=== PATIENT | female | born 1995 | race Caucasian/White ===

== ENCOUNTER → 2017-02-17 | Outpatient (CLI) | payer BC ==
[~2017-02-17] MED LIST: BCPILLS PO
[2017-02-20 23:55] LABS: CHLAMYDIA TRACH RNA*** NOT DETECTED (NOT DETECTED); GC (NEIS GONORRHOEAE)RNA** NOT DETECTED (NOT DETECTED)
== END | disposition home or self-care (01) ==
LOC: C.LABSPEC 17:19
PROVIDERS: ATTEND Obstetrics & Gynecology
DX: Z01.419 Encounter for gynecological examination (general) (routine) without abnormal findings (principal)

== ENCOUNTER → 2017-02-17 | Outpatient (CLI) | payer BC | END | disposition home or self-care (01) | LOC: C.PAPS 12:16 | PROVIDERS: ATTEND Obstetrics & Gynecology | DX: Z01.419 Encounter for gynecological examination (general) (routine) without abnormal findings (principal) ==

== ENCOUNTER → 2017-06-01 | Outpatient (CLI) | payer BC ==
[2017-06-05 14:28] LABS: MICROSOMAL AB <1 IU/ML (<9)
== END | disposition home or self-care (01) ==
LOC: C.LAB1850 15:27
PROVIDERS: ATTEND Dermatology
DX: L98.9 Disorder of the skin and subcutaneous tissue, unspecified (principal)

== ENCOUNTER → 2017-06-21 | Outpatient (CLI) | payer BC ==
[2017-06-21 10:19] LABS: URINE APPEARANCE CLEAR (CLEAR); URINE BILIRUBIN NEG (NEG); URINE COLOR YELLOW; URINE NITRITE NEG (NEG); URINE PH 6.5 (4.5-7.5); URINE SPECIFIC GRAVITY 1.023 (1.000-1.030); UROBILINOGEN NEG (NEG)
[2017-06-21 10:32] LABS: MANUAL MICROSCOPIC REQUIRED? NO; REVIEW REQ? NO
[2017-06-24 04:31] LABS: ANTI-CENTROMERE AB <1.0 NEG AI (<1.0 NEG); ANTI-SS-A <1.0 NEG AI (<1.0 NEG); ANTI-SS-B <1.0 NEG AI (<1.0 NEG); DNA ds CRITHIDIA NEGATIVE (NEGATIVE); Sm Antibody <1.0 NEG AI (<1.0 NEG)
== END | disposition home or self-care (01) ==
LOC: C.LAB1850 08:52
PROVIDERS: ATTEND Internal Medicine Rheumatology
DX: L90.0 Lichen sclerosus et atrophicus (principal); R76.8 Other specified abnormal immunological findings in serum

== ENCOUNTER → 2017-07-05 | Outpatient (CLI) | payer BC ==
[2017-07-05 11:17] LABS: BASO % 0.5 %; BASO ABS # 0.03 K/uL (0-0.2); COMPLETE YES; EOS % 1.7 %; HEMATOCRIT 43.1 % (37-47); IG% 0.2 %; LYMPH % 23.5 %; LYMPH ABS # 1.48 K/uL (1.2-3.4); MEAN CELL VOLUME 90.9 fL (80-100); MEAN CORPUSCULAR HEMOGLOBIN 29.3 pg (25-34); MEAN CORPUSCULAR HGB CONC 32.3 g/dl (32-36); MEAN PLATELET VOLUME 10.2 fL (7.4-10.4); MONO % 11.4 %; NEUT % 62.7 %; PLATELET COUNT 323 K/uL (130-400); RED BLOOD COUNT 4.74 M/uL (4.2-5.4)
[2017-07-05 11:45] LABS: ALT/SGPT 19 U/L (12-78)
[2017-07-05 11:48] LABS: ALKALINE PHOSPHATASE 82 U/L (45-117); AST/SGOT 13 U/L (15-37)
[2017-07-06 18:42] LABS: ALBUMIN 3.9 G/DL (3.8-4.8); GAMMA GLOBULIN 1.5 G/DL (0.8-1.7); TOTAL PROTEIN 7.6 G/DL (6.2-8.3)
== END | disposition home or self-care (01) ==
LOC: C.LAB1850 10:11
PROVIDERS: ATTEND Internal Medicine Rheumatology
DX: L90.0 Lichen sclerosus et atrophicus (principal); R76.8 Other specified abnormal immunological findings in serum; R70.0 Elevated erythrocyte sedimentation rate

== ENCOUNTER 2022-03-24 04:42 | Inpatient (IN) ==
--- NOTE | 2022-03-24 05:27 | History & Physical Report ---
Date of Service March 24, 2022 Assessment & Plan (1) Amniotic fluid leaking: (2) Supervision of normal first : Plan: IUP at term in early labor with SPROM GBS-negative will start pitocin augmentation of labor epidural when requested anticipate vaginal History of Present Illness Primary Care Provider: Arminda Baldwin MD Patient is a 26 yo white female EDC 03/24/22who presents at 39 4/7 weeks with SPROM for clear fluid around 0330. no contractions yet. baby active. GBS - negative Allergies Allergy/AdvReac Type Severity Reaction Status Date / Time No Known Allergies Allergy Mild Verified 03/23/22 15:01 Home Medications Medication Instructions Recorded Confirmed Type betamethasone dipropionate 0.05 % 1 applic TOP DAILY PRN gm 06/17/21 03/23/22 History topical ointment hydrocortisone 2.5 % topical cream 1 applic TOPICAL DAILY PRN #30 gm 06/17/21 03/23/22 Rx prenat.vits,norris,[id number] 1 tab PO DAILY 08/13/21 03/24/22 History mupirocin 2 % topical ointment 1 applic TOPICAL TID 7 Days #15 g 09/30/21 03/23/22 Rx ondansetron HCl 4 mg tablet 4 mg PO TID PRN 5 Days #30 tab 12/07/21 03/23/22 Rx venlafaxine 75 mg capsule,extended 75 mg PO DAILY #90 cap 03/07/22 03/24/22 Rx release 24 hr Patient History Medical History (Updated 03/24/22 @ 05:27 by Ana Espinoza MD, FACOG) Acne vulgaris Anxiety Lichen planus Lichen sclerosus Migraine headache Multiple nevi Oral contraceptive prescribed Positive ELOY (antinuclear antibody) Varicella vaccination Surgical History No pertinent past surgical history Family History Grandmother (Paternal) Colorectal cancer Grandfather (Maternal) Prostate cancer Grandmother (Maternal) Cervical cancer Denies family history of Ovarian cancer Myocardial infarction Breast cancer Lung cancer Stroke Social History Smoking Status: Never smoker Second Hand Exposure: No; Hx Alcohol Use: No Hx Substance Use: No Preferred Language: Mohawk Communication Ability: Effective Visual Impairment: Limited Hearing Ability: Normal 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 Beliefs That Will Affect Care: None marital status: marital status details: Jd Hwang (26) [phone] Current Living Situation: Spouse Current Living Situation Comment: lives with spouse, dogs current occupational status: employed 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 [employer] How many Children do You have: 0 Other Information That Helps Us Care for You: No Feels Safe at Home: Yes Safety Concerns: Feels Safe At This Time Childhood Exposure to Second-Hand Smoke: No caffeine: Yes Dental Care, Regularly: Yes Physical Activity Frequency: 5-6 Times per Week Seatbelt Use: always Sunscreen Use: Yes Assistive Devices: None Review of Systems All systems reviewed & are unremarkable except as noted in HPI & below Physical Exam Constitutional: WD/WN, vitals as above Psychiatric: A+Ox3, euthymic affect Genitourinary: OB Exam Abdomen: + vertex, + estimated weight (7-8 pounds) and + irregular contractions Manual OB Exam: + cervical dilation 1 cm and 2 cm, + station high and -2 and + amniotic fluid clear and nitrazine positive OB Exam Monitor Tracing: + external FHT monitor used, + external uterine monitor used, + category I and + normal FHT variability copious clear amniotic fluid Results & Data ([facility]) Vital Signs (Past 12 Hours) Vital Signs Temp Pulse Resp BP 03/24/22 05:16 91 H 133/90 03/24/22 05:03 98.2 F 18 03/24/22 05:01 95 H 133/91 Coding Level of Care Code None Diagnoses Amniotic fluid leaking O42.90 Supervision of normal first Z34.00
[2022-03-24] MEDS ORDERED: OXYTOCIN 30 UNITS/500 ML BAG IV PRN ×2 (05:28→05:31)
[2022-03-24 06:01] LABS: Hematocrit (blood only) 35.7 % (37-47); Hemoglobin 11.9 g/dL (12.0-16.0); Mean Corpuscular Hgb Conc 33.3 g/dL (32-36); Mean Corpuscular Volume 87.1 fL (80-100); Mean Platelet Volume 11.4 fL (7.4-10.4); Platelet Count 199 K/uL (130-400); RDW Coefficient of Variation 13.5 % (11.5-14.5); RDW Standard Deviation 42.7 fL (36.4-46.3); White Blood Count 10.11 K/uL (4.8-10.8)
[2022-03-24 06:27] LABS: Alanine Aminotransferase 8 U/L (7-52); Albumin Level 3.4 gm/dl (3.4-5.0); Alkaline Phosphatase 166 U/L (34-104); Aspartate Aminotransferase 14 U/L (13-39); Bilirubin Direct 0.1 mg/dl (0-0.2); Bilirubin,Total 0.3 mg/dl (0.2-1.0); Creatinine Clr Calc Pharmacy 195.3 ml/min; Est GFR (African American) > 150.0 ml/min; Est GFR (Non-African American) 132.7 ml/min; Total Protein 6.6 gm/dl (6.0-8.3)
[2022-03-24] MEDS: LACTATED RINGER'S 1,000 ML IV PRN ×2 (07:45→13:21)
[2022-03-24] MEDS: VENLAFAXINE HCL XR 75 MG CAPXR PO SCH (10:50)
[2022-03-24] MEDS ORDERED: fentaNYL citrate 100 MCG/2 ML VIAL ONE ×4 (13:14→20:00)
[2022-03-24] MEDS ORDERED: ePHEDrine sulfate 50 MG/ML AMP ONE (13:14)
[2022-03-24] MEDS ORDERED: SODIUM CHLORIDE 0.9% INJ 10 ML VIAL ONE (13:15)
[2022-03-24] MEDS ORDERED: fentaNYL 2MCG/ML ROPIVACAINE 1.25MG/ML 100 ML BAG EPI ONE (13:15)
[2022-03-24] MEDS ORDERED: BUPIVACAINE 0.25% 30 ML VIAL ONE (13:15)
[2022-03-24] MEDS ORDERED: NALOXONE HCL 0.4 MG/1 ML VIAL/CARP IV PRN ×2 (13:36→19:18)
[2022-03-24] MEDS ORDERED: fentaNYL 2MCG/ML ROPIVACAINE 1.25MG/ML 100 ML BAG EPI PRN (13:36)
[2022-03-24] MEDS ORDERED: NALOXONE HCL 1 MG in SODIUM CHLORIDE 0.9% 1000ML 1,000 ML IV PRN ×2 (13:36→19:18)
[2022-03-24] MEDS ORDERED: ONDANSETRON INJ 2 MG/ML 2 ML VIAL IV PRN ×3 (13:36→21:06)
[2022-03-24] MEDS ORDERED: ePHEDrine sulfate 50 MG/ML AMP IV PRN ×2 (13:36→19:18)
[2022-03-24] MEDS ORDERED: NALBUPHINE HCL INJ 10 MG/ML AMP IV PRN ×2 (13:36→19:18)
[2022-03-24] MEDS ORDERED: diphenhydrAMINE 50 MG/ML VIAL IV PRN ×3 (13:36→21:06)
--- NOTE | 2022-03-24 13:36 | Anesthesiology Consultation ---
Date of Service March 24, 2022 Assessment & Plan ASA ASA2 Proposed Anesthesia Anesthesia Type: Labor Epidural Risk / Benefits Reviewed With: PT / POA / Parent / Guardian, Accepts Plan and Informed Consent Obtained History Height/Weight Height: 5 ft 4 in Weight: 102.965 kg Allergies Allergy/AdvReac Type Severity Reaction Status Date / Time No Known Allergies Allergy Mild Verified 03/23/22 15:01 Medications Home Medications Medication Instructions Recorded Confirmed Last Taken betamethasone dipropionate 0.05 % 1 applic TOP DAILY PRN gm 06/17/21 03/23/22 Unknown topical ointment hydrocortisone 2.5 % topical cream 1 applic TOPICAL DAILY PRN #30 gm 06/17/21 03/23/22 Unknown prenat.vits,norris,[id number] 1 tab PO DAILY 08/13/21 03/24/22 03/23/22 09:00 mupirocin 2 % topical ointment 1 applic TOPICAL TID 7 Days #15 g 09/30/21 03/23/22 Unknown ondansetron HCl 4 mg tablet 4 mg PO TID PRN 5 Days #30 tab 12/07/21 03/23/22 Unknown venlafaxine 75 mg capsule,extended 75 mg PO DAILY #90 cap 03/07/22 03/24/22 03/24/22 02:00 release 24 hr Active Medications Generic Name Dose Route Start Last Admin Trade Name Freq PRN Reason Stop Dose Admin Lactated Ringer's 1,000 mls @ 125 mls/hr 03/24/22 05:28 03/24/22 07:45 Lr IV 03/26/22 05:27 125 mls/hr .Q8H PRN Administration L&D Protocol Protocol Oxytocin 30 units in 500 mls @ 17 mls/hr 03/24/22 05:31 03/24/22 12:30 Pitocin IV 03/26/22 05:30 1.02 units/hr .Q24H PRN 17 mls/hr Labor Induction/Augmentation Titration Protocol 1.02 UNITS/HR Ropivacaine 100 ml 03/24/22 13:36 03/24/22 14:01 Fentanyl 2mcg/Ml Ropivacaine 1.25mg/Ml 100 Ml Bag EPI 03/25/22 13:35 100 ml PRN PRN Administration Pain R/T Labor Protocol Venlafaxine HCl 75 mg 03/24/22 09:00 03/24/22 10:50 Venlafaxine Hcl Xr 75 Mg Capxr PO 04/23/22 08:59 Not Given DAILY SHARON Past Medical History Medical History (Updated 03/24/22 @ 05:27 by Ana Espinoza MD, FACOG) Acne vulgaris Anxiety Lichen planus Lichen sclerosus Migraine headache Multiple nevi Oral contraceptive prescribed Positive ELOY (antinuclear antibody) Varicella vaccination Exercise / Class Metabolic Activity II 4-5 Yardwork/Stairs/Walk up hill Past Family History Family History Grandmother (Paternal) Colorectal cancer Grandfather (Maternal) Prostate cancer Grandmother (Maternal) Cervical cancer Denies family history of Ovarian cancer Myocardial infarction Breast cancer Lung cancer Stroke Past Surgical History Surgical History No pertinent past surgical history Past Anesthesia History No Hx of Anesthesia Complications and No Family Hx of Anesthesia Complications History of PONV No Hx of PONV and No Hx of Motion Sickness Social History Smoking Status: Never smoker Hx Alcohol Use: No Alcohol type: beer and hard liquor Hx Substance Use: No Review of Systems denies fever/cough/ colds/ chest pain/ SOB/ ANG denies ANG Physical Exam Vital Signs Last Vital Signs Temp 36.6 C 03/24/22 11:00 Pulse 76 03/24/22 14:02 Resp 18 03/24/22 13:00 BP 125/68 03/24/22 14:02 Pulse Ox 99 03/24/22 13:59 ENMT Mouth: no TMJ abnormality and no dentition abnormality Thyromental Distance: > or= 3.5 Finger Breadths Mallampati Class: II Neck neck extension not limited Respiratory normal respiratory effort; no respiratory distress Auscultation: lungs clear to auscultation bilaterally Cardiovascular Rate/Rhythm: regular rate and regular rhythm Neurologic moves all extremities Psychiatric Orientation: alert and oriented x 3 Testing Laboratory Results 03/24/22 05:44 03/24/22 05:44 Blood Type O Positive 03/24/22 05:44 Antibody Screen NEGATIVE 03/24/22 05:44
--- NOTE | 2022-03-24 14:44 | Labor Progress Brief Note ---
Date of Service March 24, [address] Wadsworth on-call she had rupture membranes and is on Pitocin she is now 3 to 4 cm which is little change however it is difficult to monitor contractions with her external toco an IUPC is thus placed and we will increase her Pitocin max to 28 Assessment & Plan Admission and Anticipated Discharge Date Admission Date: March 24, 2022 Results & Data ([facility]) Vital Signs (Past 12 Hours) Vital Signs Temp Pulse Resp BP Pulse Ox 03/24/22 14:41 78 125/70 03/24/22 14:39 90 99 03/24/22 14:34 71 99 03/24/22 14:30 18 03/24/22 14:29 76 99 03/24/22 14:24 95 H 99 03/24/22 14:22 73 123/70 03/24/22 14:19 72 99 03/24/22 14:16 90 116/69 03/24/22 14:15 98.1 F 18 03/24/22 14:14 85 99 03/24/22 14:11 85 117/71 03/24/22 14:09 79 99 03/24/22 14:06 93 H 113/71 03/24/22 14:04 82 119/67 99 03/24/22 14:02 76 125/68 03/24/22 14:00 82 119/78 03/24/22 13:59 78 99 03/24/22 13:58 83 121/70 03/24/22 13:55 99 H 136/83 03/24/22 13:54 99 H 99 03/24/22 13:52 100 H 136/85 03/24/22 13:49 100 H 100 03/24/22 13:45 99 H 89 L 03/24/22 13:44 98 H 140/92 100 03/24/22 13:00 18 03/24/22 11:30 18 03/24/22 11:00 97.9 F 18 03/24/22 10:01 74 118/80 03/24/22 09:04 98.1 F 83 20 122/80 03/24/22 08:17 85 121/78 03/24/22 07:16 86 128/81 03/24/22 06:09 88 120/75 03/24/22 05:16 91 H 133/90 03/24/22 05:03 98.2 F 18 03/24/22 05:01 95 H 133/91 Coding Level of Care Code None
--- NOTE | 2022-03-24 17:25 | Labor Progress Brief Note ---
Date of Service March 24, 2022 Update with the IU her Carmen units are ranging from 250 per 10-minute EPOCH to 230. This is clearly adequate I have rechecked her cervix and there still is no change she is 3 cm there is increased thickening of the cervix and swelling and there is increased molding as well. -2 station. Clearly by criteria we can go longer to determine fully whether there is going to be a failure to progress however she has been ruptured membranes since 3 in the morning and is really progressed from 2 cm to 3 over an entire day. We did discuss the risks of ongoing rupture of membranes including risks of infection and risk to the baby I have offered her at this stage to recheck her in 2 hours I have also also offered her the option of just doing a as there is seems to be declining likelihood that she will be successful vaginally clearly there is no urgency to this and I have suggested to the patient that this is an option but that we are not pushing at this moment. Patient will talk with her partner for a while and let us know her feelings section. The patient was counseled to the nature of the procedure including alternatives such as labor. Risks were discussed including bleeding infection injury to bowel bladder ureter vessels and even baby. Deep Vein thrombosis, pulmonary embolus discussed. Breakdown of incision reviewed. Deep vein thrombosis pulmonary embolus hernia and failure of the incision to heal were discussed Patient verbalized understanding of this and was given ample time to ask questions Assessment & Plan Admission and Anticipated Discharge Date Admission Date: March 24, 2022 Results & Data ([facility]) Vital Signs (Past 12 Hours) Vital Signs Temp Pulse Resp BP Pulse Ox 03/24/22 17:19 86 97 03/24/22 17:14 76 99 03/24/22 17:10 72 112/72 03/24/22 17:09 79 99 03/24/22 17:04 77 98 03/24/22 16:59 76 98 03/24/22 16:55 72 117/75 03/24/22 16:54 73 99 03/24/22 16:49 82 98 03/24/22 16:44 80 99 03/24/22 16:41 76 112/64 03/24/22 16:39 81 99 03/24/22 16:34 77 99 03/24/22 16:30 98.2 F 18 03/24/22 16:29 80 100 03/24/22 16:25 89 120/80 03/24/22 16:24 89 99 03/24/22 16:19 80 98 03/24/22 16:14 79 98 03/24/22 16:10 73 122/73 03/24/22 16:09 72 98 03/24/22 16:04 86 98 03/24/22 16:00 18 03/24/22 15:59 87 99 03/24/22 15:56 69 124/74 03/24/22 15:54 75 99 03/24/22 15:49 98 H 100 03/24/22 15:44 69 98 03/24/22 15:40 71 121/68 03/24/22 15:39 71 97 03/24/22 15:34 73 97 03/24/22 15:30 18 03/24/22 15:29 77 97 03/24/22 15:25 67 123/68 03/24/22 15:24 69 100 03/24/22 15:19 76 100 03/24/22 15:14 75 99 03/24/22 15:10 73 125/69 03/24/22 15:09 68 99 03/24/22 15:04 78 100 03/24/22 15:00 18 03/24/22 14:59 70 100 03/24/22 14:57 69 118/70 03/24/22 14:54 70 100 03/24/22 14:49 75 100 03/24/22 14:44 81 100 03/24/22 14:41 78 125/70 03/24/22 14:39 90 99 03/24/22 14:34 71 99 03/24/22 14:30 18 03/24/22 14:29 76 99 03/24/22 14:24 95 H 99 03/24/22 14:22 73 123/70 03/24/22 14:19 72 99 03/24/22 14:16 90 116/69 03/24/22 14:15 98.1 F 18 03/24/22 14:14 85 99 03/24/22 14:11 85 117/71 03/24/22 14:09 79 99 03/24/22 14:06 93 H 113/71 03/24/22 14:04 82 119/67 99 03/24/22 14:02 76 125/68 05/26/22 14:00 82 119/78 03/24/22 13:59 78 99 03/24/22 13:58 83 121/70 03/24/22 13:55 99 H 136/83 03/24/22 13:54 99 H 99 03/24/22 13:52 100 H 136/85 03/24/22 13:49 100 H 100 03/24/22 13:45 99 H 89 L 03/24/22 13:44 98 H 140/92 100 03/24/22 13:00 18 03/24/22 11:30 18 03/24/22 11:00 97.9 F 18 03/24/22 10:01 74 118/80 03/24/22 09:04 98.1 F 83 20 122/80 03/24/22 08:17 85 121/78 03/24/22 07:16 86 128/81 03/24/22 06:09 88 120/75 Coding Level of Care Code None
--- NOTE | 2022-03-24 18:39 | Labor Progress Brief Note ---
Date of Service March 24, 2022 unchanged 3cm. CTX more than adequate. Offered to continue labor or C/S for failure to progress, She wishes C/S. agree Assessment & Plan Admission and Anticipated Discharge Date Admission Date: March 24, 2022 Results & Data ([facility]) Vital Signs (Past 12 Hours) Vital Signs Temp Pulse Resp BP Pulse Ox 03/24/22 18:34 80 98 03/24/22 18:30 18 03/24/22 18:29 90 98 03/24/22 18:24 81 98 03/24/22 18:19 79 99 03/24/22 18:14 76 97 03/24/22 18:12 76 102/55 L 03/24/22 18:09 85 98 03/24/22 18:04 82 98 03/24/22 18:00 18 03/24/22 17:59 69 98 03/24/22 17:55 72 130/78 03/24/22 17:54 84 96 03/24/22 17:49 83 98 03/24/22 17:44 84 98 03/24/22 17:41 74 119/67 03/24/22 17:39 80 96 03/24/22 17:34 87 98 03/24/22 17:30 98.2 F 18 03/24/22 17:29 81 98 03/24/22 17:27 75 129/77 03/24/22 17:24 80 99 03/24/22 17:19 86 97 03/24/22 17:14 76 99 03/24/22 17:10 72 112/72 03/24/22 17:09 79 99 03/24/22 17:04 77 98 03/24/22 17:00 98.2 F 18 03/24/22 16:59 76 98 03/24/22 16:55 72 117/75 03/24/22 16:54 73 99 03/24/22 16:49 82 98 03/24/22 16:44 80 99 03/24/22 16:41 76 112/64 03/24/22 16:39 81 99 03/24/22 16:34 77 99 03/24/22 16:30 98.2 F 18 03/24/22 16:29 80 100 03/24/22 16:25 89 120/80 03/24/22 16:24 89 99 03/24/22 16:19 80 98 03/24/22 16:14 79 98 03/24/22 16:10 73 122/73 03/24/22 16:09 72 98 03/24/22 16:04 86 98 03/24/22 16:00 18 03/24/22 15:59 87 99 03/24/22 15:56 69 124/74 03/24/22 15:54 75 99 03/24/22 15:49 98 H 100 03/24/22 15:44 69 98 03/24/22 15:40 71 121/68 03/24/22 15:39 71 97 03/24/22 15:34 73 97 03/24/22 15:30 18 03/24/22 15:29 77 97 03/24/22 15:25 67 123/68 03/24/22 15:24 69 100 03/24/22 15:19 76 100 03/24/22 15:14 75 99 03/24/22 15:10 73 125/69 03/24/22 15:09 68 99 03/24/22 15:04 78 100 03/24/22 15:00 18 03/24/22 14:59 70 100 03/24/22 14:57 69 118/70 03/24/22 14:54 70 100 03/24/22 14:49 75 100 03/24/22 14:44 81 100 03/24/22 14:41 78 125/70 03/24/22 14:39 90 99 03/24/22 14:34 71 99 03/24/22 14:30 18 03/24/22 14:29 76 99 03/24/22 14:24 95 H 99 03/24/22 14:22 73 123/70 03/24/22 14:19 72 99 03/24/22 14:16 90 116/69 03/24/22 14:15 98.1 F 18 03/24/22 14:14 85 99 03/24/22 14:11 85 117/71 03/24/22 14:09 79 99 03/24/22 14:06 93 H 113/71 03/24/22 14:04 82 119/67 99 03/24/22 14:02 76 125/68 03/24/22 14:00 82 119/78 03/24/22 13:59 78 99 03/24/22 13:58 83 121/70 03/24/22 13:55 99 H 136/83 03/24/22 13:54 99 H 99 03/24/22 13:52 100 H 136/85 03/24/22 13:49 100 H 100 03/24/22 13:45 99 H 89 L 03/24/22 13:44 98 H 140/92 100 03/24/22 13:00 18 03/24/22 11:30 18 03/24/22 11:00 97.9 F 18 03/24/22 10:01 74 118/80 03/24/22 09:04 98.1 F 83 20 122/80 03/24/22 08:17 85 121/78 03/24/22 07:16 86 128/81 Coding Level of Care Code None
[2022-03-24] MEDS ORDERED: LACTATED RINGER'S 1,000 ML IV SCH ×2 (18:45→21:06)
[2022-03-24] MEDS ORDERED: OXYTOCIN 10 UNITS/ML 10ML VIAL ONE (19:00)
[2022-03-24] MEDS ORDERED: MoRPHine SULFATE PF 1 MG/ML 10 ML AMP/VIAL ONE (19:00)
[2022-03-24] MEDS ORDERED: LIDOCAINE 2%/EPINEPHRINE 1:200,000 20 ML SDV ONE (19:06)
[2022-03-24] MEDS ORDERED: NALOXONE HCL 0.08 MG in SYRINGE 1.8 ML IV PRN (19:18)
[2022-03-24] MEDS ORDERED: LACTATED RINGER'S 500 ML IV PRN (19:18)
[2022-03-24] MEDS ORDERED: MoRPHine SULFATE PF 1 MG/ML 10 ML AMP/VIAL EPI ONE ×2 (19:18→20:09)
[2022-03-24] MEDS ORDERED: MoRPHine SULFATE 2 MG/ML CARP IV PRN (19:18)
[2022-03-24] MEDS ORDERED: CITRIC ACID/SODIUM CITRATE 15 ML UDC PO SCH (19:30)
[2022-03-24] MEDS ORDERED: NO NARCOTICS OR SEDATIVES SCH (19:30)
[2022-03-24] MEDS ORDERED: DC INTRASPINAL MORPHINE SCH (19:30)
[2022-03-24] MEDS ORDERED: SODIUM CHLORIDE 0.9% 1000ML 1,000 ML IV SCH (19:30)
[2022-03-24] MEDS ORDERED: MIDAZOLAM HCL 1 MG/ML 2ML VIAL ONE (19:58)
[2022-03-24] MEDS ORDERED: ePHEDrine sulfate 50 MG/ML SYR ONE (20:06)
[2022-03-24] MEDS ORDERED: CHLOROPROCAINE HCL 3% 20 ML VIAL ONE (20:09)
--- NOTE | 2022-03-24 20:28 | Operative Report ---
PG Post Operative Report Pre & Post Diagnosis Operation Date: 03/24/22 18:40 Pre-Op Diagnosis: Primary Section in LD for Failure to Progress under services of Dr Warner Post-Op Diagnosis: Primary Section for Failure to Progress at 0801 for a viable baby boy under services of Dr Warner I identified the patient and participated in the time-out.: Yes Procedure Operation Date: 03/24/22 18:40 Actual Procedures p Primary Section in LD for Failure to Progress at [address] Warner(Not Applicable) - Britney Warner MD, FACOG Surgeon Britney Warner MD, FACOG Assistant Professor In Family Studies . Estimated Blood Loss 600 Findings Consistent with Post-Op Diagnosis Specimens Cord gases Cord blood Description of Procedure Regional anesthetic had been given by anesthesia patient was prepped and draped with a leftward tilt preoperative antibiotics had been given in appropriate timing by anesthesiology. Once the prep was allowed to fully dry timeout was performed. Pickups with teeth were used to test the incision area was found to be inadequate for incision as the patient did feel sharp pain. Attempts were made by anesthesia to improve the block and this did improve we were able to form the incision and cut down to the fascia at this states the patient started to feel some discomfort and Dr. Laird and myself felt it was best for the patient to have a general anesthetic this was performed by Dr. Laird without event. We then cut through the subcutaneous fat down to the level of the anterior rectus sheath fascia this was cut in the midline and then extended laterally with the curved Harvey scissors. At this stage we then placed 2 Lima clamps on the anterior aspect of the fascia. Using the curved Harvey's we are able to dissect the fascia superiorly away from the rectus muscles. Care was taken to maintain hemostasis. Lima clamps were then placed to the inferior aspect of the anterior sheath of the fascia. Fascia was then dissected away from the rectus muscles inferiorly towards the pubic bone. A Lima was then placed in the midline both inferiorly and superiorly. This was to allow exposure by retraction rectus muscles were in the midline with were then able to cut through the peritoneum and then enter the peritoneal cavity. Opening was enlarged to allow exposure of the peritoneal cavity both superiorly and inferiorly. Once adequate space was obtained a bladder retractor was placed to expose the lower segment Metzenbaums were used to dissect the bladder flap inferiorly away from the uterus. This was done sharply bladder retractor was then repositioned to expose the lower segment of the uterus Fresh scalpel was used to make a low transverse incision on the uterus. Uterus was then entered bluntly with the operators finger, membranes ruptured and the opening was enlarged using the operators fingers bluntly pulling superiorly and inferiorly to allow exposure. Baby was delivered by first flexion of the head elevation of the head out of the pelvis and then pressure by the administrative assistant coordinator on the maternal abdomen. Baby's head was then delivered mouth and then nares were suctioned and then using gentle traction the baby was fully delivered. Live vigorous male . Fluid was clear cord clamped and cut cord gases obtained cord blood obtained baby handed to pediatrics. Placenta removed was removed with traction we ensure the entire placenta was removed with a moist lap sponge into the uterus Uterus was then exteriorized. IV Pitocin had been started by anesthesia tone improved there were no extensions the uterus was then closed using 0 Monocryl in a 2 layer closure the first layer closed in a running locked fashion from left to right and then a second closure from left to right in a running nonlocked fashion. At this stage hemostasis was excellent. Uterus was placed back in the peritoneal cavity with suction irrigation out and inspection of the uterus at this stage revealed excellent hemostasis Retractors were removed urine color was clear at this stage of the case we inspected the rectus muscles they were hemostatic fascia was closed with 0 Vicryl subcutaneous fat was irrigated and closed with 3-0 Vicryl skin closed with 4-0 subcuticular Monocryl I attest to the content of the Intraoperative Record and any orders documented therein. Any exceptions are noted below. OB Procedure Charges 92224
[2022-03-24 20:37] LABS: Base Excess Cord Arterial Bld -1.1 mEq/L (-9-1.8); Base Excess Cord Venous Blood -2.4 mEq/L (-7.7-1.9); CO2 Cord Arterial Blood 57 mmHg (39.1-73.5); Cord Venous Blood HCO3 24 mmol/L (18.4-26.8); Cord Venous Blood PCO2 47 mmHg (30.4-57.2); Cord Venous Blood PO2 36 mmHg (14.1-43.3); Cord Venous Blood pH 7.33 (7.20-7.44); HCO3 Cord Arterial Blood 27 mmol/L (19.7-28.5); Oxygen Sat Cord Arterial Blood < 60.0 % (<60); PO2 Cord Arterial Blood 19 mmHg (4.1-31.7); pH Cord Arterial Blood 7.29 (7.1-7.38)
[2022-03-24] MEDS ORDERED: MAGNESIUM HYDROXIDE SUSP 30 ML UDC PO PRN (21:06)
[2022-03-24] MEDS ORDERED: SENNA 8.6 MG TAB PO PRN (21:06)
[2022-03-24] MEDS ORDERED: HYDROCORTISONE ACETATE 25 MG SUPP PR PRN (21:06)
[2022-03-24] MEDS ORDERED: diphenhydrAMINE Capsule 25 MG CAP PO PRN (21:06)
[2022-03-24] MEDS ORDERED: BENZOCAINE 20% AER SPR 82.5 GM CAN EXT PRN (21:06)
[2022-03-24] MEDS ORDERED: DIPHTHERIA/TETANUS/PERTUSSIS 0.5 ML SYR/VIAL IM ONE (21:06)
[2022-03-24] MEDS ORDERED: KETOROLAC 30 MG/ML VIAL IV PRN (21:06)
[2022-03-24] MEDS ORDERED: PROMETHAZINE HCL 25 MG in SODIUM CHLORIDE 0.9% 50 ML IV PRN (21:06)
--- NOTE | 2022-03-24 21:08 | Anesthesiology Progress Note ---
Date of Service March 24, 2022 Anesthesia Post Procedure Vital Signs Vital Signs: Temp Pulse Resp BP Pulse Ox 03/24/22 21:06 109 H 152/90 H 03/24/22 21:04 113 H 100 03/24/22 20:59 123 H 98 03/24/22 20:55 127 H 127/61 03/24/22 20:54 126 H 140/76 99 03/24/22 20:49 128 H 99 03/24/22 20:44 133 H 100 03/24/22 20:43 133 H 113/55 L 03/24/22 19:19 83 98 03/24/22 19:14 83 99 03/24/22 19:10 79 125/77 03/24/22 19:09 86 98 03/24/22 19:04 88 99 03/24/22 19:00 18 03/24/22 18:59 79 98 03/24/22 18:56 77 123/73 03/24/22 18:54 83 99 03/24/22 18:49 83 97 03/24/22 18:44 85 98 03/24/22 18:41 88 129/85 03/24/22 18:39 85 98 03/24/22 18:34 80 98 03/24/22 18:30 18 03/24/22 18:29 90 98 03/24/22 18:24 81 98 03/24/22 18:19 79 99 03/24/22 18:14 76 97 03/24/22 18:12 76 102/55 L 03/24/22 18:09 85 98 03/24/22 18:04 82 98 03/24/22 18:00 18 03/24/22 17:59 69 98 03/24/22 17:55 72 130/78 03/24/22 17:54 84 96 03/24/22 17:49 83 98 03/24/22 17:44 84 98 03/24/22 17:41 74 119/67 03/24/22 17:39 80 96 03/24/22 17:34 87 98 03/24/22 17:30 36.8 C 18 03/24/22 17:29 81 98 03/24/22 17:27 75 129/77 03/24/22 17:24 80 99 03/24/22 17:19 86 97 03/24/22 17:14 76 99 03/24/22 17:10 72 112/72 03/24/22 17:09 79 99 03/24/22 17:04 77 98 03/24/22 17:00 36.8 C 18 03/24/22 16:59 76 98 03/24/22 16:55 72 117/75 03/24/22 16:54 73 99 03/24/22 16:49 82 98 03/24/22 16:44 80 99 03/24/22 16:41 76 112/64 03/24/22 16:39 81 99 03/24/22 16:34 77 99 03/24/22 16:30 36.8 C 18 03/24/22 16:29 80 100 03/24/22 16:25 89 120/80 03/24/22 16:24 89 99 03/24/22 16:19 80 98 03/24/22 16:14 79 98 03/24/22 16:10 73 122/73 03/24/22 16:09 72 98 03/24/22 16:04 86 98 03/24/22 16:00 18 03/24/22 15:59 87 99 03/24/22 15:56 69 124/74 03/24/22 15:54 75 99 03/24/22 15:49 98 H 100 03/24/22 15:44 69 98 03/24/22 15:40 71 121/68 03/24/22 15:39 71 97 03/24/22 15:34 73 97 03/24/22 15:30 18 03/24/22 15:29 77 97 03/24/22 15:25 67 123/68 03/24/22 15:24 69 100 03/24/22 15:19 76 100 03/24/22 15:14 75 99 03/24/22 15:10 73 125/69 03/24/22 15:09 68 99 03/24/22 15:04 78 100 03/24/22 15:00 18 03/24/22 14:59 70 100 03/24/22 14:57 69 118/70 03/24/22 14:54 70 100 03/24/22 14:49 75 100 03/24/22 14:44 81 100 03/24/22 14:41 78 125/70 03/24/22 14:39 90 99 03/24/22 14:34 71 99 03/24/22 14:30 18 03/24/22 14:29 76 99 03/24/22 14:24 95 H 99 03/24/22 14:22 73 123/70 03/24/22 14:19 72 99 03/24/22 14:16 90 116/69 03/24/22 14:15 36.7 C 18 03/24/22 14:14 85 99 03/24/22 14:11 85 117/71 03/24/22 14:09 79 99 03/24/22 14:06 93 H 113/71 03/24/22 14:04 82 119/67 99 03/24/22 14:02 76 125/68 03/24/22 14:00 82 119/78 03/24/22 13:59 78 99 03/24/22 13:58 83 121/70 03/24/22 13:55 99 H 136/83 03/24/22 13:54 99 H 99 03/24/22 13:52 100 H 136/85 03/24/22 13:49 100 H 100 03/24/22 13:45 99 H 89 L 03/24/22 13:44 98 H 140/92 100 03/24/22 13:00 18 03/24/22 11:30 18 03/24/22 11:00 36.6 C 18 03/24/22 10:01 74 118/80 03/24/22 09:04 36.7 C 83 20 122/80 03/24/22 08:17 85 121/78 03/24/22 07:16 86 128/81 03/24/22 06:09 88 120/75 03/24/22 05:16 91 H 133/90 03/24/22 05:03 36.8 C 18 03/24/22 05:01 95 H 133/91 Pain Intensity Lower Abdomen: Pain Intensity: 4 Transfer of Care Handoff Completed per policy Notes Mental Status: alert / awake / arousable and participated in evaluation Patient Amnestic to Procedure: Yes Nausea / Vomiting: adequately controlled Pain: adequately controlled Airway Patency, RR, SpO2: stable & adequate BP & HR: stable & adequate Hydration State: stable & adequate Anesthetic Complications: no major complications apparent and Pt Satisfied with anesthetic care
[2022-03-24] MEDS: OXYTOCIN 20 UNITS in LACTATED RINGER'S 1,000 ML IV SCH (23:16)
[2022-03-25] MEDS: KETOROLAC 30 MG/ML VIAL IV PRN ×2 (00:02→09:23)
[2022-03-25] MEDS: DOCUSATE SODIUM 100 MG CAP PO SCH ×3 (01:59→20:19)
[2022-03-25] MEDS: SIMETHICONE 80 MG CHEW PO SCH ×5 (02:00→20:19)
--- NOTE | 2022-03-25 05:37 | Obstetrical Progress Note ---
Date of Service <Marina Rainey MD - Last Filed: 03/25/22 06:52> March 25, 2022 Assessment & Plan <Marina Rainey MD - Last Filed: 03/25/22 06:52> (1) delivery delivered: 26 yo now POD1 from primary LTCS for failure to progress at 39wk4d -Continue routine care -Vitals reviewed- HDS, afebrile -Blood type O+, GBS-, Rubella immune -Encourage ambulation -Remove Bhandari -Advance diet as tolerated -Encourage -Pain control with ibuprofen, oxycodone PRN -Hgb pending, asymptomatic <Britney Warner MD, FACOG - Last Filed: 03/25/22 07:11> (1) delivery delivered: Subjective <Marina Rainey MD - Last Filed: 03/25/22 06:52> Ambulation: limited ambulation Voiding: bhandari catheter in place Passing Gas:: No Diet Tolerance:: clear liquids Lochia:: Small Feeding Type:: breast feeding (and bottle) Current Pain Level(1-10): 0 Pt doing well overall, no acute complaints or distress. Pain well controlled with medication. Did have some emesis 3x last night shortly after procedure, eager to try breakfast. Review of Systems Denies fever/chills. Denies dyspnea, cough. Denies chest pain. Denies breast pain or discharge. Denies dysuria. Denies headache. Denies back pain. Physical Exam <Marina Rainey MD - Last Filed: 03/25/22 06:52> General: Alert, oriented, no acute distress Cardiac: Regular rate and rhythm, normal S1, S2. No murmurs noted. Respiratory: Clear to auscultation b/l with good air flow entry, symmetric chest rise and fall. No wheezes or crackles. No increased work of breathing or accessory muscle use. Abdomen: Soft, nondistended, tender around incision site. Fundus firm and palpable at 1 cm below umbilicus. Surgical dressing clean, dry and intact without any overlying erythema, warmth or drainage. No guarding or rebound. Skin: No rashes or lesions Extremities: Warm, dry and well-perfused with capillary refill <2s b/l. No lower extremity edema, erythema, swelling or tenderness Results & Data ([facility]) <Marina Rainey MD - Last Filed: 03/25/22 06:52> Vital Signs (Past 12 Hours) Vital Signs Temp Pulse Pulse Resp BP BP Pulse Ox 03/25/22 05:00 16 95 03/25/22 04:00 16 95 03/25/22 03:25 36.8 C 97 H 16 102/67 95 03/25/22 03:00 16 92 03/25/22 02:00 18 92 03/25/22 01:00 18 93 03/24/22 23:55 36.7 C 112 H 18 113/77 96 03/24/22 23:39 140 H 93 03/24/22 23:35 103 H 94 03/24/22 23:34 104 H 95 03/24/22 23:29 116 H 97 03/24/22 23:28 114 H 124/77 03/24/22 23:24 119 H 96 03/24/22 23:19 138 H 94 03/24/22 23:14 124 H 96 03/24/22 23:09 116 H 94 03/24/22 23:08 113 H 138/80 03/24/22 23:05 105 H 94 03/24/22 23:04 102 H 93 03/24/22 22:59 103 H 94 03/24/22 22:58 104 H 94 03/24/22 22:54 101 H 95 03/24/22 22:49 113 H 97 03/24/22 22:48 109 H 126/74 03/24/22 22:44 104 H 94 03/24/22 22:43 116 H 97 03/24/22 22:39 102 H 95 03/24/22 22:34 104 H 93 03/24/22 22:33 101 H 94 03/24/22 22:29 99 H 96 03/24/22 22:28 103 H 129/74 03/24/22 22:24 102 H 96 03/24/22 22:19 107 H 97 03/24/22 22:14 112 H 96 03/24/22 22:13 18 03/24/22 22:09 114 H 97 03/24/22 22:08 108 H 146/84 H 03/24/22 22:04 101 H 97 03/24/22 21:59 111 H 97 03/24/22 21:54 116 H 98 03/24/22 21:49 114 H 98 03/24/22 21:46 111 H 145/80 H 03/24/22 21:44 115 H 96 03/24/22 21:43 18 03/24/22 21:39 111 H 97 03/24/22 21:38 108 H 94 03/24/22 21:37 100 H 137/74 03/24/22 21:34 102 H 96 03/24/22 21:33 16 03/24/22 21:31 104 H 94 03/24/22 21:29 115 H 98 03/24/22 21:26 111 H 123/87 03/24/22 21:24 114 H 97 03/24/22 21:23 16 03/24/22 21:19 112 H 97 03/24/22 21:15 114 H 139/74 03/24/22 21:14 121 H 96 03/24/22 21:13 16 03/24/22 21:09 116 H 98 03/24/22 21:06 109 H 152/90 H 03/24/22 21:04 113 H 100 03/24/22 21:03 16 03/24/22 20:59 123 H 98 03/24/22 20:55 127 H 127/61 03/24/22 20:54 126 H 140/76 99 03/24/22 20:53 16 03/24/22 20:49 128 H 99 03/24/22 20:44 133 H 100 03/24/22 20:43 36.5 C 133 H 16 113/55 L 03/24/22 19:19 83 98 03/24/22 19:14 83 99 03/24/22 19:10 79 125/77 03/24/22 19:09 86 98 03/24/22 19:04 88 99 03/24/22 19:00 18 03/24/22 18:59 79 98 03/24/22 18:56 77 123/73 03/24/22 18:54 83 99 03/24/22 18:49 83 97 03/24/22 18:44 85 98 03/24/22 18:41 88 129/85 03/24/22 18:39 85 98 03/24/22 18:34 80 98 03/24/22 18:30 18 03/24/22 18:29 90 98 03/24/22 18:24 81 98 03/24/22 18:19 79 99 03/24/22 18:14 76 97 03/24/22 18:12 76 102/55 L 03/24/22 18:09 85 98 03/24/22 18:04 82 98 03/24/22 18:00 18 03/24/22 17:59 69 98 03/24/22 17:55 72 130/78 03/24/22 17:54 84 96 03/24/22 17:49 83 98 03/24/22 17:44 84 98 03/24/22 17:41 74 119/67 03/24/22 17:39 80 96 03/24/22 17:34 87 98 <Britney Warner MD, FACOG - Last Filed: 03/25/22 07:11> Co-Signing Physician Notes Resident Physician Supervision Note: I interviewed and examined the patient. Discussed with Dr. Rainey and agree with findings and plan as documented in the note. Any exceptions or clarifications are listed here: [None] Documented By: Britney Warner MD, FACOG Resident Activity Tracking <Marina Rainey MD - Last Filed: 03/25/22 06:52> Resident Involvement: Resident Care Provided Care Provided: OB Delivery
[2022-03-25 06:51] LABS: Basophils # (auto) 0.03 K/uL (0-0.2); Basophils % (auto) 0.2 %; Eosinophils # (auto) 0.03 K/uL (0-0.5); Eosinophils % (auto) 0.2 %; Hematocrit (blood only) 31.6 % (37-47); Hemoglobin 10.4 g/dL (12.0-16.0); Immature Granulocytes # (auto) 0.05 K/uL (0.00-0.02); Immature Granulocytes % (auto) 0.4 %; Lymphocytes # (auto) 1.29 K/uL (1.2-3.4); Lymphocytes % (auto) 9.6 %; Mean Corpuscular Hemoglobin 29.1 pg (25-34); Mean Corpuscular Hgb Conc 32.9 g/dL (32-36); Mean Corpuscular Volume 88.3 fL (80-100); Mean Platelet Volume 11.5 fL (7.4-10.4); Monocytes % (auto) 8.9 %; Neutrophils # (auto) 10.82 K/uL (1.4-6.5); Neutrophils % (auto) 80.7 %; Platelet Count 175 K/uL (130-400); RDW Coefficient of Variation 13.7 % (11.5-14.5); RDW Standard Deviation 44.5 fL (36.4-46.3); Red Blood Count 3.58 M/uL (4.2-5.4); White Blood Count 13.42 K/uL (4.8-10.8)
[2022-03-25] MEDS: OXYTOCIN 20 UNITS in LACTATED RINGER'S 1,000 ML IV SCH (08:00)
[2022-03-25] MEDS: VENLAFAXINE HCL XR 75 MG CAPXR PO SCH (08:46)
[2022-03-25] MEDS: PRENATAL VITAMIN 1 TAB PO SCH (08:46)
[2022-03-25] MEDS: FERROUS SULFATE 325 MG TAB PO SCH (08:46)
[2022-03-25] MEDS ORDERED: bisacodyL 5 MG TABEC PO SCH (20:00)
[2022-03-25] MEDS: IBUPROFEN 600 MG TAB PO PRN (20:18)
[2022-03-25] MEDS: oxyCODONE/ACETAMINOPHEN 5mg/325mg TAB PO PRN (20:18)
[2022-03-26] MEDS: oxyCODONE/ACETAMINOPHEN 5mg/325mg TAB PO PRN ×2 (03:35→09:19)
[2022-03-26] MEDS: IBUPROFEN 600 MG TAB PO PRN ×2 (03:35→09:18)
--- NOTE | 2022-03-26 05:48 | Obstetrical Progress Note ---
Date of Service <Marina Rainey MD - Last Filed: 03/26/22 08:17> March 26, 2022 Assessment & Plan <Marina Rainey MD - Last Filed: 03/26/22 08:17> (1) delivery delivered: 26 yo now POD2 from primary LTCS for failure to progress at 39wk4d -Continue routine care -Vitals reviewed- HDS, afebrile -Encourage ambulation -Encourage -Pain control with ibuprofen, oxycodone PRN -Hgb 9.7, asymptomatic <Jose Calzada MD - Last Filed: 03/26/22 08:21> (1) delivery delivered: Subjective <Marina Rainey MD - Last Filed: 03/26/22 08:17> Ambulation: ambulating normally Voiding: no voiding problems Passing Gas:: No Diet Tolerance:: regular diet Lochia:: Small Feeding Type:: breast feeding Current Pain Level(1-10): 0 Pt doing well overall, no acute complaints or distress. Pain well controlled with medication. Review of Systems Denies fever/chills. Denies dyspnea, cough. Denies chest pain. Denies breast pain or discharge. Denies dysuria. Denies headache. Denies back pain. Physical Exam <Marina Rainey MD - Last Filed: 03/26/22 08:17> General: Alert, oriented, no acute distress Cardiac: Regular rate and rhythm, normal S1, S2. No murmurs appreciated. Respiratory: Clear to auscultation b/l with good air flow entry, symmetric chest rise and fall. No wheezes or crackles. No increased work of breathing or accessory muscle use Abdomen: Soft, nontender, nondistended. Fundus firm and palpable at 2 cm below umbilicus. Surgical incision clean, dry and intact without erythema, warmth or drainage. Bowel sounds appreciated. No guarding or rebound. Skin: No rashes or lesions Extremities: Warm, dry, well-perfused with capillary refill <2s b/l. No lower extremity edema, erythema, swelling or calf tenderness b/l Results & Data ([facility]) <Marina Rainey MD - Last Filed: 03/26/22 08:17> Vital Signs (Past 12 Hours) Vital Signs Temp Pulse Resp BP Pulse Ox 03/26/22 00:45 36.8 C 77 16 97/65 L 97 03/25/22 19:50 36.9 C 85 18 108/73 96 <Jose Calzada MD - Last Filed: 03/26/22 08:21> Co-Signing Physician Notes Patient seen and evaluated with resident and agree with the above findings and plan. Routine care Resident Activity Tracking <Marina Rainey MD - Last Filed: 03/26/22 08:17> Resident Involvement: Resident Care Provided Care Provided: OB Delivery
[2022-03-26 07:11] LABS: Hemoglobin 9.7 g/dL (12.0-16.0)
[2022-03-26] MEDS: SIMETHICONE 80 MG CHEW PO SCH ×2 (09:18→13:10)
[2022-03-26] MEDS: PRENATAL VITAMIN 1 TAB PO SCH (09:18)
[2022-03-26] MEDS: FERROUS SULFATE 325 MG TAB PO SCH (09:18)
[2022-03-26] MEDS: DOCUSATE SODIUM 100 MG CAP PO SCH (09:18)
[2022-03-26] MEDS: VENLAFAXINE HCL XR 75 MG CAPXR PO SCH (09:19)
[2022-03-26] MEDS ORDERED: bisacodyL 10 MG SUPP PR PRN (20:42)
--- NOTE | 2022-03-29 16:45 | Discharge Summary ---
Date of Service March 29, 2022 Admission HPI Per Admitting Provider Patient is a 26 yo white female EDC 03/24/22who presents at 39 4/7 weeks with SPROM for clear fluid around 0330. no contractions yet. baby active. GBS - negative Discharge Data Consultations 03/24/22 05:28 Consult Anesthesiology Stat Procedures Performed Operation Date: 03/24/22 18:40 Actual Procedures p Primary Section in for Failure to Progress at [address] Warner(Not Applicable) - Britney Warner MD, [place] (1) delivery delivered: 26 yo now POD2 from primary LTCS for failure to progress at 39wk4d -Continue routine care -Vitals reviewed- HDS, afebrile -Encourage ambulation -Encourage -Pain control with ibuprofen, oxycodone PRN -Hgb 9.7, asymptomatic Postoperative from section patient meets discharge criteria as she is ambulating well tolerating an oral diet has minimal bleeding and no extremity pain. Discharge instructions were reviewed and prescriptions were sent to her pharmacy of choice patient advised to call with any concerns and follow-up in the office discussed Coding Level of Care Code None Diagnoses delivery delivered O82
== END 2022-03-26 15:20 | disposition home or self-care (01) | DRG 788 ==
LOC: OPB 04:42 → 4S1 04:46 → 4E2 23:50

== ENCOUNTER 2024-11-17 05:08 | Inpatient (IN) ==
[2024-11-17] MEDS ORDERED: METOCLOPRAMIDE HCL INJ 5 MG/ML 2 ML VIAL IV PRN (06:06)
[2024-11-17] MEDS: SODIUM CHLORIDE 0.9% 1,000 ML IV SCH ×4 (06:23→13:36)
[2024-11-17] MEDS: ONDANSETRON INJ 2 MG/ML 2 ML VIAL IV PRN ×2 (06:26→15:50)
[2024-11-17] MEDS: CITRIC ACID/SODIUM CITRATE 15 ML UDC ONE (08:59)
--- NOTE | 2024-11-17 09:05 | History & Physical Report ---
Date of Service November 17, 2024 Assessment & Plan (1) Previous delivery affecting , antepartum: Plan: Intrauterine at 39 and 1 sevenths weeks in early labor with prior section planning on repeat section. Despite IV hydration the contractions could continue to be every 5 to 7 minutes therefore we will proceed with repeat section at this time. The procedure and its risks have been reviewed with the patient and her questions were all answered to her satisfaction and she is willing to proceed. Admission and Anticipated Discharge Date Admission Date: November 17, 2024 History of Present Illness Primary Care Provider: Arminda Baldwin MD Patient is a 29-year-old 2 para 1-0-0-1 female EDC 11/23/2024 who presents at 39 and 1 sevenths weeks with regular contractions every 5 to 7 minutes. The contractions started yesterday and were irregular but became more persistent and closer together at approximately 4 AM today. She is a scheduled repeat section on 11/22. Prior section was done for failure to progress and required general anesthetic because epidural anesthesia was ineffective. GBS is negative. Blood type is O+. testing has been all been reassuring. Allergies Allergy/AdvReac Type Severity Reaction Status Date / Time No Known Allergies Allergy Mild Verified 11/12/24 08:44 Home Medications Medication Instructions Recorded Confirmed Type hydrocortisone 2.5 % topical cream 1 applic topical DAILY PRN skin 06/17/21 11/17/24 Rx irritation #30 grams mupirocin 2 % topical ointment 1 applic topical TID 7 days #15 11/14/23 11/17/24 Rx grams 21-iron fu-folic acid 1 tab PO QAM 04/08/24 11/17/24 History [ Complete] metoclopramide HCl 10 mg tablet 10 mg PO Q8 PRN nausea and 08/07/24 11/17/24 Rx (Reglan) vomiting #30 tabs ondansetron HCl 4 mg tablet 4 mg PO Q6H PRN nausea and 09/30/24 11/17/24 Rx vomiting #30 tabs venlafaxine 75 mg capsule,extended 75 mg PO QAM 11/07/24 11/17/24 History release 24 hr Patient History Medical History Anxiety History of COVID-19 10/2021: mild symptoms. resolved Hx of migraines none recently Hx of motion sickness Nausea & vomiting due to the (has had the entire ) PONV (postoperative nausea and vomiting) Surgical History S/P section (2021) epidural (had worn off and was not numb-per patient) + general anesthesia Family History Grandmother (Paternal) Colorectal cancer Grandfather (Maternal) Prostate cancer Grandmother (Maternal) Cervical cancer Other No family history of adverse response to anesthesia Denies family history of Ovarian cancer Myocardial infarction Breast cancer Lung cancer Stroke Social History (Updated 04/08/24 @ 08:57 by Norma Mendez) Smoking Status: Never smoker Second Hand Exposure: No; Do You Dip or Chew Tobacco: No; Hx Alcohol Use: No Hx Substance Use: No Preferred Language: Moroccan Communication Ability: Effective Visual Impairment: Limited Hearing Ability: Normal Display Department Manager Required: No Beliefs That Will Affect Care: None marital status: marital status details: Jd Hwang (29) [phone] Current Living Situation: Spouse and Family Current Living Situation Comment: lives with spouse, son, dogs current occupational status: employed current occupation: [employer] How many Children do You have: 1 Feels Safe at Home: Yes Childhood Exposure to Second-Hand Smoke: No Diet: regular caffeine: Yes Dental Care, Regularly: Yes Physical Activity Frequency: Does not Exercise Seatbelt Use: always Sunscreen Use: Yes Assistive Devices: Contacts and Glasses Review of Systems All systems reviewed & are unremarkable except as noted in HPI & below Physical Exam Constitutional: WD/WN, vitals as above Respiratory: normal respiratory effort, lungs clear to auscultation Cardiovascular: RRR, no murmur, no edema Psychiatric: A+Ox3, euthymic affect Genitourinary: OB Exam Abdomen: + fundal height (term), + vertex, + estimated weight (7-8 pounds) and + regular contractions (Q5-7 minutes) Manual OB Exam: + cervical dilation 2 cm, + cervical effacement 50% and + station high OB Exam Monitor Tracing: + external FHT monitor used, + external uterine monitor used, + category I and + normal FHT variability Results & Data Vital Signs (Past 12 Hours) Vital Signs Temp Pulse Resp BP 11/17/24 07:00 98.4 F 20 11/17/24 06:59 81 11/17/24 06:59 124/73 11/17/24 05:38 88 133/83 11/17/24 05:33 88 11/17/24 05:33 133/83 11/17/24 05:26 18 11/17/24 05:26 98.2 F 18 Code Status & VTE Plan VTE Prophylaxis Plan VTE Prophylaxis will be ordered: No Coding Level of Care Code 48141 INT INP/OBS CARE 2/55MIN Diagnoses Previous delivery affecting , antepartum O34.219
--- NOTE | 2024-11-17 09:07 | Anesthesiology Consultation ---
Date of Service November 17, 2024 Assessment & Plan (1) Encounter for pre-operative examination: Chart Review Chart Review: Acceptable Risk for Surgery History Height/Weight Height: 5 ft 4 in Weight: 98.656 kg Allergies Allergy/AdvReac Type Severity Reaction Status Date / Time No Known Allergies Allergy Mild Verified 11/12/24 08:44 Medications Home Medications Medication Instructions Recorded Confirmed Last Taken hydrocortisone 2.5 % topical cream 1 applic topical DAILY PRN skin 06/17/21 11/17/24 Unknown irritation #30 grams mupirocin 2 % topical ointment 1 applic topical TID 7 days #15 11/14/23 11/17/24 Unknown grams 21-iron fu-folic acid 1 tab PO QAM 04/08/24 11/17/24 11/16/24 21:00 [ Complete] metoclopramide HCl 10 mg tablet 10 mg PO Q8 PRN nausea and 08/07/24 11/17/24 Unknown (Reglan) vomiting #30 tabs ondansetron HCl 4 mg tablet 4 mg PO Q6H PRN nausea and 09/30/24 11/17/24 Unknown vomiting #30 tabs venlafaxine 75 mg capsule,extended 75 mg PO QAM 11/07/24 11/17/24 11/16/24 09:00 release 24 hr Active Medications Generic Name Dose Route Start Last Admin Trade Name Freq PRN Reason Stop Dose Admin Ondansetron HCl 4 mg 11/17/24 06:06 11/17/24 06:26 Ondansetron Inj 2 Mg/Ml 2 Ml Vial IV 12/17/24 06:05 4 mg Q4H PRN Administration Nausea And Vomiting Past Medical History Medical History Hx of motion sickness PONV (postoperative nausea and vomiting) History of COVID-19 10/2021: mild symptoms. resolved Nausea & vomiting due to the (has had the entire ) Hx of migraines none recently Anxiety Past Family History Family History Grandmother (Paternal) Colorectal cancer Grandfather (Maternal) Prostate cancer Grandmother (Maternal) Cervical cancer Other No family history of adverse response to anesthesia Denies family history of Ovarian cancer Myocardial infarction Breast cancer Lung cancer Stroke Past Surgical History Surgical History S/P section (2021) epidural (had worn off and was not numb-per patient) + general anesthesia Social History Smoking Status: Never smoker Do You Dip or Chew Tobacco: No Hx Alcohol Use: No Alcohol type: beer and hard liquor Hx Substance Use: No substance use type: does not use Physical Exam Vital Signs Last Vital Signs Temp 36.9 C 11/17/24 07:00 Pulse 81 11/17/24 06:59 Resp 20 11/17/24 07:00 BP 124/73 11/17/24 06:59 Testing Laboratory Results pending cbc and type and screen
[2024-11-17 09:10] LABS: Basophils # (auto) 0.05 K/uL (0.00-0.20); Basophils % (auto) 0.5 %; Hematocrit (blood only) 36.7 % (37.0-47.0); Hemoglobin 12.5 g/dl (12.0-16.0); Immature Granulocytes # (auto) 0.04 K/uL (0.01-0.20); Immature Granulocytes % (auto) 0.4 %; Lymphocytes # (auto) 1.67 K/uL (1.20-3.40); Lymphocytes % (auto) 16.4 %; Mean Corpuscular Hemoglobin 29.8 pg (25.0-34.0); Mean Corpuscular Hgb Conc 34.1 g/dL (32.0-36.0); Mean Corpuscular Volume 87.4 fL (80.0-100.0); Mean Platelet Volume 12.1 fL (9.4-12.4); Monocytes # (auto) 0.89 K/uL (0.11-0.59); Monocytes % (auto) 8.7 %; Neutrophils # (auto) 7.44 K/uL (1.40-6.50); Platelet Count 153 K/uL (130-400); RDW Coefficient of Variation 13.5 % (11.5-14.5); RDW Standard Deviation 41.7 fL (36.4-46.3); White Blood Count 10.19 K/ul (4.8-10.8)
[2024-11-17] MEDS: ACETAMINOPHEN 500 MG TAB PO SCH (09:20)
[2024-11-17] MEDS: AZITHROMYCIN 250 MG TAB PO SCH (09:44)
[2024-11-17] MEDS: CITRIC ACID/SODIUM CITRATE 15 ML UDC PO SCH (09:45)
[2024-11-17] MEDS ORDERED: MoRPHine SULFATE PF 1 MG/ML 10 ML AMP/VIAL ONE (10:06)
[2024-11-17] MEDS ORDERED: METOCLOPRAMIDE HCL INJ 5 MG/ML 2 ML VIAL ONE (10:12)
[2024-11-17] MEDS ORDERED: ONDANSETRON INJ 2 MG/ML 2 ML VIAL ONE (10:12)
[2024-11-17] MEDS ORDERED: DEXAMETHASONE SOD INJ 4 MG/ML VIAL ONE (10:12)
[2024-11-17] MEDS ORDERED: OXYTOCIN 10 UNITS/ML VIAL ONE (10:15)
[2024-11-17] MEDS: ceFAZolin 2000MG 2,000 MG/15 ML SYR IV SCH (10:21)
[2024-11-17] MEDS ORDERED: oxyCODONE HCL IR 5 MG TAB (IMMEDIATE RELEASE) PO PRN (10:38)
[2024-11-17] MEDS ORDERED: ONDANSETRON INJ 2 MG/ML 2 ML VIAL IV PRN (10:38)
[2024-11-17] MEDS ORDERED: NALBUPHINE HCL INJ 10 MG/ML AMP IV PRN (10:38)
[2024-11-17] MEDS ORDERED: NALOXONE HCL 0.08 MG in SYRINGE 1.8 ML IV PRN (10:38)
[2024-11-17] MEDS ORDERED: NALOXONE HCL 0.4 MG/1 ML VIAL/CARP IV PRN (10:38)
[2024-11-17] MEDS ORDERED: NALOXONE HCL 1 MG in SODIUM CHLORIDE 0.9% 1,000 ML IV PRN (10:38)
[2024-11-17] MEDS ORDERED: ePHEDrine sulfate 50 MG/ML AMP IV PRN (10:38)
[2024-11-17] MEDS ORDERED: diphenhydrAMINE 50 MG/ML VIAL IV PRN (10:38)
[2024-11-17] MEDS ORDERED: MoRPHine SULFATE 2 MG/ML CARP IV PRN (10:38)
[2024-11-17] MEDS ORDERED: NO NARCOTICS OR SEDATIVES SCH (10:45)
[2024-11-17] MEDS ORDERED: DC INTRASPINAL MORPHINE SCH (10:45)
[2024-11-17] MEDS ORDERED: PHENYLEPHRINE HCL 10 MG/ML VIAL ONE (11:02)
[2024-11-17] MEDS ORDERED: ePHEDrine sulfate 50 MG/5 ML SYR ONE (11:03)
--- NOTE | 2024-11-17 11:41 | Post Operative Brief Note ---
Immediate Post Op Note Date of Surgery November 17, 2024 Pre & Post Diagnosis Operation Date: 11/17/24 10:00 Pre-Op Diagnosis: CONTRACTIONS AT TERM- PRIOR C/S Post-Op Diagnosis: CONTRACTIONS AT TERM- PRIOR C/S I identified the patient and participated in the time-out.: Yes Procedure Operation Date: 11/17/24 10:00 Actual Procedures p Section in LD - Ana Espinoza MD, FACOG Surgeon Ana Espinoza MD, FACOG Communication Spec Mel Jose RN Quantitative Blood Loss (QBL) 880 Findings Consistent with Post-Op Diagnosis gravid uterus at term normal ovaries and tubes Specimens Specimen Description: 1. Placenta, HOLD 2. Cord Blood Drains Flood Catheter Anesthesia Type Spinal Complications none Disposition Accompanied Patient To Recovery: Yes Disposition: L&D
[2024-11-17] MEDS ORDERED: SENNA 8.6 MG TAB PO PRN (11:52)
[2024-11-17] MEDS ORDERED: CALCIUM CARBONATE 500 MG CHEWABLE TAB PO PRN (11:52)
[2024-11-17] MEDS ORDERED: HYDROCORTISONE ACETATE 25 MG SUPP PR PRN (11:52)
[2024-11-17] MEDS ORDERED: BENZOCAINE 20% SPRY 85 APPLN/85 GM CAN EXT PRN (11:52)
[2024-11-17] MEDS ORDERED: MAGNESIUM HYDROXIDE SUSP 30 ML UDC PO PRN (11:52)
--- NOTE | 2024-11-17 12:06 | Operative Report ---
Post Operative Report Pre & Post Diagnosis Operation Date: 11/17/24 10:00 Pre-Op Diagnosis: CONTRACTIONS AT TERM- PRIOR C/S Post-Op Diagnosis: CONTRACTIONS AT TERM- PRIOR C/S I identified the patient and participated in the time-out.: Yes Procedure Operation Date: 11/17/24 10:00 Actual Procedures p Section in LD delivery of live female at 1054 - Ana Domingo MD, FACOG Surgeon Ana Espinoza MD, FACOG Design Engineering Specialist Mel Jose RN Quantitative Blood Loss (QBL) 880 Findings Consistent with Post-Op Diagnosis Uterus was gravid and consistent with a term in size. Bilateral ovaries and fallopian tubes were also grossly normal. Specimens Placenta to hold Drains Flood catheter to straight drainage clear urine at the end of the case Anesthesia Type Spinal Complications none Disposition Accompanied Patient To Recovery: Yes Disposition: L&D Indications Patient is a 29-year-old 2 para 1-0-0-1 female EDC of 11/23/2024 who presented at 39 and 1 sevenths weeks with regular contractions that were every 5 minutes. was complicated by prior section and she was to have a repeat section on November 22. Despite hydration contractions continued and decision was made to move forward with a section now. Description of Procedure After the patient received adequate subarachnoid block she was prepped and draped in usual sterile fashion. A load transverse skin incision was made through her prior scar and carried to the fascia with the same scalpel. The fascial incision was then extended with Harvey scissors the edges were then grasped with Lima clamps and the underlying rectus muscle was bluntly sharply dissected off of the overlying fascia. The peritoneum was entered bluntly. The bladder was taken down off of the anterior surface of the uterus and placed behind the bladder blade using Metzenbaum scissors. The lower uterine segment was thin and it was entered with a scalpel and then extended transversely by stretching the incision in a cephalad and caudad direction. With moderate fundal pressure, and the assistance of the vacuum, the infant was delivered from the vertex presentation and under direct OP P presentation. After the head was delivered through the incision the rest of the infant delivered easily. She was vigorous crying and moving all 4 limbs. Cord was clamped and cut and the was handed off to Dr. Kimball who was in attendance his milling planer operator. After cord blood was obtained, the placenta was expressed intact with a three-vessel cord. Some retained membranes were also removed with ring forceps. A clean lap sponge was then used to evacuate any remaining clot and tissue in the uterine cavity. The uterus was then exteriorized and covered with a clean lap sponge. The uterus was then closed in 2 layers in a running lock imbricating fashion with 0 Monocryl. Hemostasis was noted to be satisfactory on the uterine incision. The posterior cul-de-sac was evaluated and a small amount of clot and fluid were removed. The uterine incision was examined once more and continue to have excellent hemostasis, who was then placed back inside the abdominal cavity. The gutters were then explored and found to be free of any clot or fluid. The uterine incision continued to have excellent hemostasis and the rectus muscle were brought together in midline with individual stitches of 0 Monocryl. The fascia was closed in a running fashion with 0 Vicryl. After irrigating the subcutaneous layer, Savannah's fascia was brought together in a running fashion with 2-0 catgut. Skin edges were reapproximated then with 4-0 Vicryl in a subcuticular manner. Urine was clear at the end the case mother and tolerated the procedure well. I attest to the content of the Intraoperative Record and any orders documented therein. Any exceptions are noted below. OB Procedure Charges 36228
[2024-11-17] MEDS: MoRPHine SULFATE PF 1 MG/ML 10 ML AMP/VIAL INT SPINAL ONE (12:12)
[2024-11-17] MEDS: DIPHTHER/TETAN/PERTUS Vaccine (Tdap, Adol/Adult) 0.5mL IM ONE (12:54)
[2024-11-17] MEDS: OXYTOCIN 20 UNITS/LR 1,002 ML IV SCH (13:01)
[2024-11-17] MEDS: KETOROLAC 30 MG/ML VIAL IV SCH (13:01)
[2024-11-17] MEDS: SIMETHICONE 80 MG CHEW PO SCH (13:39)
--- NOTE | 2024-11-17 14:50 | Anesthesiology Progress Note ---
Date of Service November 17, 2024 Anesthesia Post Procedure Vital Signs Vital Signs: Temp Pulse Resp BP Pulse Ox 11/17/24 14:04 73 11/17/24 14:04 101/58 L 11/17/24 14:00 96 11/17/24 14:00 76 11/17/24 13:55 95 11/17/24 13:55 80 11/17/24 13:54 80 11/17/24 13:54 113/56 L 11/17/24 13:50 97 11/17/24 13:50 79 11/17/24 13:45 98 11/17/24 13:45 72 11/17/24 13:44 74 11/17/24 13:44 116/61 11/17/24 13:40 96 11/17/24 13:40 86 11/17/24 13:35 96 11/17/24 13:35 79 11/17/24 13:34 72 11/17/24 13:34 117/61 11/17/24 13:30 97 11/17/24 13:30 76 11/17/24 13:25 97 11/17/24 13:25 74 11/17/24 13:24 75 11/17/24 13:24 111/56 L 11/17/24 13:20 97 11/17/24 13:20 79 11/17/24 13:15 16 11/17/24 13:15 96 11/17/24 13:15 83 11/17/24 13:14 86 11/17/24 13:14 105/58 L 11/17/24 13:10 98 11/17/24 13:10 79 11/17/24 13:05 98 11/17/24 13:05 77 11/17/24 13:04 75 11/17/24 13:04 108/57 L 11/17/24 13:00 95 11/17/24 13:00 82 11/17/24 12:55 98 11/17/24 12:55 91 H 11/17/24 12:54 68 11/17/24 12:54 110/54 L 11/17/24 12:50 98 11/17/24 12:50 75 11/17/24 12:45 20 11/17/24 12:45 97 11/17/24 12:45 78 11/17/24 12:44 75 11/17/24 12:44 107/61 11/17/24 12:40 98 11/17/24 12:40 69 11/17/24 12:35 20 11/17/24 12:35 98 11/17/24 12:35 69 11/17/24 12:34 73 11/17/24 12:34 104/61 11/17/24 12:30 99 11/17/24 12:30 71 11/17/24 12:25 18 11/17/24 12:25 98 11/17/24 12:25 69 11/17/24 12:25 100/56 L 11/17/24 12:20 96 11/17/24 12:20 73 11/17/24 12:15 18 11/17/24 12:15 96 11/17/24 12:15 67 11/17/24 12:14 71 11/17/24 12:14 100/56 L 11/17/24 12:10 96 11/17/24 12:10 76 11/17/24 12:05 18 11/17/24 12:05 96 11/17/24 12:05 73 11/17/24 12:04 81 11/17/24 12:04 91/56 L 11/17/24 12:00 97 11/17/24 12:00 78 11/17/24 11:55 16 11/17/24 11:55 96 11/17/24 11:55 77 11/17/24 11:54 75 11/17/24 11:54 95/59 L 11/17/24 11:50 96 11/17/24 11:50 83 11/17/24 11:45 36.7 C 16 11/17/24 11:45 95 11/17/24 11:45 79 11/17/24 11:45 94 11/17/24 11:45 81 11/17/24 11:44 78 11/17/24 11:44 105/53 L 11/17/24 07:00 36.9 C 20 11/17/24 06:59 81 11/17/24 06:59 124/73 11/17/24 05:38 88 133/83 11/17/24 05:33 88 11/17/24 05:33 133/83 11/17/24 05:26 18 11/17/24 05:26 36.8 C 18 Transfer of Care Handoff Completed per policy Notes Mental Status: alert / awake / arousable Patient Amnestic to Procedure: Yes Nausea / Vomiting: adequately controlled Pain: adequately controlled Airway Patency, RR, SpO2: stable & adequate BP & HR: stable & adequate Hydration State: stable & adequate Neuraxial Anesthesia: was administered and sensory block is resolving Anesthetic Complications: no major complications apparent
[2024-11-17] MEDS: PROMETHAZINE 6.25 MG/50.25 ML BAG IV PRN (17:12)
[2024-11-17] MEDS: ACETAMINOPHEN 325 MG TAB PO SCH (17:51)
[2024-11-17] MEDS: DOCUSATE SODIUM 100 MG CAP PO SCH (20:30)
[2024-11-18] MEDS ORDERED: diphenhydrAMINE 50 MG/ML VIAL IV PRN (04:38)
[2024-11-18] MEDS ORDERED: diphenhydrAMINE Capsule 25 MG CAP PO PRN (04:38)
[2024-11-18] MEDS ORDERED: PROMETHAZINE 12.5 MG/50.5 ML BAG IV PRN (04:38)
[2024-11-18] MEDS ORDERED: ONDANSETRON INJ 2 MG/ML 2 ML VIAL IV PRN (04:38)
[2024-11-18] MEDS ORDERED: HYDROmorphone INJ 0.5 MG/0.5 ML SYR IV PRN (04:38)
[2024-11-18] MEDS ORDERED: oxyCODONE HCL IR 5 MG TAB (IMMEDIATE RELEASE) PO PRN (04:38)
[2024-11-18 04:48] VITALS: RESP 18
[2024-11-18] MEDS ORDERED: AZITHROMYCIN 500 MG in SODIUM CHLORIDE 0.9% 250 ML IV SCH (06:00)
[2024-11-18 06:49] LABS: Basophils # (auto) 0.03 K/uL (0.00-0.20); Basophils % (auto) 0.3 %; Eosinophils # (auto) 0.14 K/uL (0.00-0.50); Eosinophils % (auto) 1.6 %; Hematocrit (blood only) 30.7 % (37.0-47.0); Hemoglobin 10.3 g/dl (12.0-16.0); Immature Granulocytes # (auto) 0.05 K/uL (0.01-0.20); Immature Granulocytes % (auto) 0.6 %; Lymphocytes # (auto) 1.83 K/uL (1.20-3.40); Lymphocytes % (auto) 20.5 %; Mean Corpuscular Hemoglobin 29.7 pg (25.0-34.0); Mean Corpuscular Hgb Conc 33.6 g/dL (32.0-36.0); Mean Corpuscular Volume 88.5 fL (80.0-100.0); Mean Platelet Volume 11.9 fL (9.4-12.4); Monocytes # (auto) 1.09 K/uL (0.11-0.59); Monocytes % (auto) 12.2 %; Neutrophils % (auto) 64.8 %; Platelet Count 142 K/uL (130-400); RDW Coefficient of Variation 13.4 % (11.5-14.5); RDW Standard Deviation 42.9 fL (36.4-46.3); Red Blood Count 3.47 M/uL (4.20-5.40); White Blood Count 8.94 K/ul (4.8-10.8)
--- NOTE | 2024-11-18 07:29 | Obstetrical Progress Note ---
Date of Service November 18, 2024 Assessment & Plan (1) Encounter for care and examination after delivery: doing well POD#1 continue current care plan Subjective Ambulation: ambulating normally Voiding: no voiding problems Passing Gas:: Yes Diet Tolerance:: regular diet Lochia:: Moderate Feeding Type:: breast feeding has nausea yesterday but this has resolved today- tolerating regular diet pain well controlled on scheduled pain meds Review of Systems All systems reviewed & are unremarkable except as noted in HPI & below Physical Exam Constitutional WD/WN, vitals as above Gastrointestinal (Abdomen) Inspection/Auscultation: + abdominal surgical incision (dry and intact- no erythema or ecchymosis) Psychiatric A+Ox3, euthymic affect Genitourinary OB Exam Abdomen: + fundal height Fundus: + firm and + relation to umbilicus (1 below U) Results & Data Vital Signs (Past 12 Hours) Vital Signs Temp Pulse Resp BP Pulse Ox O2 Del Method 11/18/24 04:40 18 98 11/18/24 04:15 98.1 F 83 18 121/71 97 Room Air 11/18/24 03:59 16 98 11/18/24 03:00 16 95 11/18/24 01:53 16 96 11/18/24 00:59 16 95 11/18/24 00:00 16 96 11/17/24 23:20 98.2 F 70 16 113/69 97 Room Air 11/17/24 23:05 18 96 11/17/24 22:00 16 97 11/17/24 21:00 18 99 11/17/24 20:15 Room Air 11/17/24 20:15 98.2 F 73 16 109/66 97 Room Air 11/17/24 20:00 16 99
[2024-11-18] MEDS: PRENATAL VITAMIN 1 TAB PO SCH (09:12)
[2024-11-18] MEDS: FERROUS SULFATE 325 MG TAB PO SCH (09:13)
[2024-11-18] MEDS ORDERED: KETOROLAC 30 MG/ML VIAL IV PRN (11:52)
[2024-11-18] MEDS: IBUPROFEN 600 MG TAB PO SCH (12:19)
[2024-11-18] MEDS: VENLAFAXINE HCL XR 75 MG CAPXR PO SCH (12:20)
[2024-11-18] MEDS: bisacodyL 5 MG TABEC PO SCH (19:52)
[2024-11-18 20:17] VITALS: O2SAT 98
[2024-11-19 06:34] LABS: Hematocrit (blood only) 31.1 % (37.0-47.0); Hemoglobin 10.3 g/dl (12.0-16.0)
--- NOTE | 2024-11-19 07:24 | Obstetrical Progress Note ---
Date of Service November 19, 2024 Assessment & Plan (1) Encounter for care and examination after delivery: 29 [facility] doing well -Meeting all pp milestones -O+/rubella immune/ -f/u 6 weeks for appt, stable for dc Subjective Ambulation: ambulating normally Voiding: no voiding problems Passing Gas:: Yes Diet Tolerance:: regular diet Lochia:: Small Feeding Type:: breast feeding Pain well managed with medication Review of Systems Denies fevers, chills, n/v, NOLEN, CP, SOB Physical Exam Constitutional WD/WN, vitals as above no acute distress Respiratory normal respiratory effort, lungs clear to auscultation Cardiovascular RRR, no murmur, no edema Gastrointestinal (Abdomen) Percussion/Palpation: abdomen soft; abdomen nontender fundus firm at umbilicus and NT, incision c/d/i Musculoskeletal BLE symmetric, nonerythematous, nontender Results & Data Vital Signs (Past 12 Hours) Vital Signs Temp Pulse Resp BP Pulse Ox O2 Del Method 11/18/24 23:35 98.1 F 69 18 117/74 98 Room Air 11/18/24 19:50 98.1 F 80 18 127/74 98 Room Air
[2024-11-19 09:51] VITALS: BP 125/76; TEMP 97.9
[2024-11-19 09:54] VITALS: PULSE 83
[2024-11-19] MEDS ORDERED: bisacodyL 10 MG SUPP PR PRN (11:52)
[2024-11-19] MEDS ORDERED: IBUPROFEN 600 MG TAB PO PRN (11:52)
[2024-11-19] MEDS ORDERED: ACETAMINOPHEN 325 MG TAB PO PRN (17:52)
--- NOTE | 2024-11-20 12:59 | Discharge Summary ---
Date of Service November 20, 2024 Admission HPI Per Admitting Provider Patient is a 29-year-old 2 para 1-0-0-1 female EDC 11/23/2024 who presents at 39 and 1 sevenths weeks with regular contractions every 5 to 7 minutes. The contractions started yesterday and were irregular but became more persistent and closer together at approximately 4 AM today. She is a scheduled repeat section on 11/22. Prior section was done for failure to progress and required general anesthetic because epidural anesthesia was ineffective. GBS is negative. Blood type is O+. testing has been all been reassuring. Admission Exam (Per Admitting) Constitutional WD/WN, vitals as above Respiratory normal respiratory effort, lungs clear to auscultation Cardiovascular RRR, no murmur, no edema Gastrointestinal (Abdomen) Inspection/Auscultation: + abdominal surgical incision (dry and intact- no erythema or ecchymosis) Psychiatric A+Ox3, euthymic affect Genitourinary OB Exam Abdomen: + fundal height, + vertex, + estimated weight (7-8 pounds) and + regular contractions (Q5-7 minutes) Manual OB Exam: + cervical dilation + 2 cm, + cervical effacement + 50% and + station + high OB Exam Monitor Tracing: + external FHT monitor used, + external uterine monitor used, + category I and + normal FHT variability Discharge Data Consultations 11/17/24 08:39 Consult Anesthesiology Stat Procedures Performed Operation Date: 11/17/24 10:00 Actual Procedures p Section in LD delivery of live female at 1054 - Ana Domingo MD, FACOG Discharge Plan Discharge Items Patient Disposition: Home - Self-Care Reason For Visit: CONTRACTIONS AT TERM- PRIOR C/S Discharge Diagnosis: pp Activity: Per Instructions section Non-emergency contact: Strip Picker Call non-emergency contact if: your pain is not controlled, your pain is wors ening, your pain is unusual for you, you have a fever, your wound has increased redness, your wound has increased drainage and your wound pain has increased Follow-up/Referrals: Arminda Baldwin MD [Primary Care Provider] - Diet: Regular Addtl Attending Provider Instructions: ACTIVITY RECOMMENDATIONS: * Gradual return to full activity over the next 2-3 weeks. * No lifting - nothing heavier than baby over the next 2-3 weeks. * Do not engage in vigorous exercise, sexual activity or sports until cleared by your physician. * Do not drive or operate any motorized equipment until cleared by your physician. * You may shower/bathe daily. MEDICATIONS: For discomfort or pain, you may use Acetaminophen (Tylenol), Ibuprofen (Advil), or Naproxen (Aleve) following the package directions. For constipation you may use Colace following the package directions. BREAST CARE: If you are not breast feeding: * Wear a supportive bra 24 hours a day for one to two weeks. * Avoid stimulating your breasts and nipples as much as possible during the first few weeks after delivery. * When taking a shower, have the warm water hit your back, not breasts. * When your breasts feel full, apply ice packs. Usually three to four times a day helps ease the discomfort. * Take a mild pain medication (Tylenol / Motrin) when you are uncomfortable. If breast feeding: * Use breast milk to lubricate nipples. Lansinoh cream may be used for sore nipples. You do not need to remove cream prior to breast feeding. If using a different brand of cream, check the label for directions regarding removal of cream prior to nursing. * Wear a supportive bra. * If having problems with breasts or breast feeding, call a strategy execution consultant or your health care provider. SPECIAL CARE INSTRUCTIONS: When you are discharged from the hospital, it is important for you to follow the instructions listed below: * During the first week at home, you should be able to care for yourself and your baby. In addition, the usual light household activities are encouraged. * Limit your activities to the way you feel. Do not try to clean the house or move furniture. Be sensible. * If you actively engage in sports and have done so up until the time of your delivery, you may resume these activities as soon as you feel able. This may take up to one month or even longer. Use good judgment. * Continue to take your vitamins for at least six weeks after the of your baby. * Your diet need not be limited unless you were on a special diet before your delivery. Breast-feeding mothers need around 2500 calories per day and at least 64-80 ounces of fluid per day (8 to 10 glasses). * You should eat foods from the four major food groups. Crash diets or fad diets are to be avoided. Eating lean meats, fresh fruits and vegetables, low-fat dairy products, high fiber foods and a regular exercise program, will help you get back to your pre- weight without putting your health at risk. * Constipation is sometimes a problem after delivery. Take a mild laxative as needed. If breast feeding, Milk of Magnesia is acceptable to use. You may use a suppository or Fleets enema. * A daily shower or tub bath is suggested. Wash incision daily with warm soapy water and pat dry. It doesn't need to be covered unless drainage is present. * A bloody vaginal discharge will usually continue until around four weeks . A small amount of bleeding may continue for as long as six weeks. Vaginal discharge changes from the bright red bleeding after delivery to pink then brownish and finally yellowish-pink before becoming white and disappearing. * Bleeding may increase with activity. Your first period may come in 4-8 weeks. If you are breast feeding, your period may be delayed even longer. * [place] (sex) can begin whenever both you and your partner feel comfortable and do not have any form of genital infection. It is recommended that you wait at least six weeks for internal and external healing to occur. If you have questions, please talk to your health care practitioner. A condom should be used to prevent infection and . * Foreplay, gentle intercourse and lubrication is very important the first several times to prevent pain. A water-based lubricant such as K-Y jelly or Astroglide may be used. * If you have RH negative blood and your baby is RH positive, you will receive RHOGAM by injection prior to discharge. The nurse will give you a card to keep with you that has the date and place that you received RHOGAM after delivery. * During your care, you had a Rubella screen done to check for the presence of rubella antibodies in your blood. If your test was negative, you will receive a Rubella vaccine prior to discharge. This vaccine may cause a fever, soreness at the injection site and flu-like symptoms. If these symptoms persist, notify your health care practitioner. is not advised for one month after a Rubella vaccine. * Verbalizes understanding of car seat law as reviewed with patient nursing. * Car Seat hand-out given and reviewed with patient by nursing. * Shaken baby information reviewed with patient by nursing. Call you doctor if: * Heavy bleeding (saturating several pads an hour) or passing clots the size of your fist. * A fever >101 degrees F (38.3 degrees C) on two occasions four hours apart and/or chills. * Unusual pain in the pelvic or vaginal areas. * Call the doctor for any increased redness, drainage or swelling around the incision and any pain unrelieved by prescribed pain medication. * "Baby Blues" lasting longer than two weeks. If you have any questions or concerns, call your health care practitioner at . FOLLOW UP VISIT: * Please call the office at to schedule a 6 week examination. It is important you keep this appointment. It is important for you to make arrangements for either yearly or twice yearly check-ups thereafter. Pending Studies at Discharge: Yes Stand-Alone Forms: My [facility], Smoking Cessation Medications and DC Order Prescriptions: New oxycodone 5 mg Tablet 5 - 10 mg PO Q3H PRN (Reason: pain) Qty: 10 0RF Continued hydrocortisone 2.5 % cream 1 applic topical DAILY PRN (Reason: skin irritation) Qty: 30 0RF Rx Instructions: SPOT TREAT ON FACE AND APPLY SPARINGLY TO CYSTIC LESIONS mupirocin 2 % ointment 1 applic topical TID 7 Days Qty: 15 0RF 21-iron fu-folic acid [ Complete] 1 tab PO QAM metoclopramide HCl [Reglan] 10 mg tablet 10 mg PO Q8 PRN (Reason: nausea and vomiting) Qty: 30 0RF ondansetron HCl 4 mg tablet 4 mg PO Q6H PRN (Reason: nausea and vomiting) Qty: 30 0RF venlafaxine 75 mg capsule,extended release 24hr 75 mg PO QAM Discharge Orders: Discharge Order (Routine); Ordered 11/19/24 Ordered By: Oly Orona Admission Data Admit Date/Time: 11/17/24 08:45 Attending Provider: Ana Espinoza Admit Provider: Ana Espinoza Primary Care Provider: Arminda Baldwin Other Providers: Oly Orona Other Interventions: Discharge Summary Assessment (RN) Last Done: 11/19/24 09:52 Coding Level of Care Code 07027 IN/OBS DISCH 30 MIN/LESS
== END 2024-11-19 11:15 | disposition home or self-care (01) | DRG 788 ==
LOC: OPB 05:08 → 4S1 05:15 → 4E2 14:28